=== PATIENT | female | born 1950 | race Caucasian/White ===

== ENCOUNTER → 2017-01-04 | Outpatient (CLI) | payer BC ==
[~2017-01-04] MED LIST: NO HOME MEDICATIONS
== END ==
LOC: MC.RAD 14:59
DX: Z12.31 Encounter for screening mammogram for malignant neoplasm of breast (principal)

== ENCOUNTER → 2018-12-22 | Outpatient (CLI) | payer MEDICARE, OTHER | LOC: MC.RAD 09:00 | DX: Z12.31 Encounter for screening mammogram for malignant neoplasm of breast (principal) ==

== ENCOUNTER 2021-03-25 13:19 | Inpatient (IN) | payer MEDICARE, OTHER ==
[~2021-03-25] VITALS: Ht 162.6 cm; Wt 63.6 kg
[2021-03-25 14:36] LABS: ALANINE AMINOTRANSFERASE 43 U/L (4-34); ALBUMIN 3.5 gm/dL (3.5-5.0); ALKALINE PHOSPHATASE 59 U/L (50-136); ANION GAP 8 mmol/L (7-16); AST,SGOT 132 U/L (15-37); BILIRUBIN,TOTAL 0.7 mg/dL (0.0-1.0); BLOOD UREA NITROGEN 11 mg/dL (7-17); C-REACTIVE PROTEIN 7.5 mg/dL (0.0-0.9); CALCIUM 8.4 mg/dL (8.4-10.2); CARBON DIOXIDE 25 mmol/L (22-30); CREATININE, serum 0.73 (0.52-1.25); GLUCOSE 108 mg/dL (74-106); POTASSIUM 3.7 mmol/L (3.4-5.0); TOTAL PROTEIN 6.9 gm/dL (6.4-8.2)
[2021-03-25 14:44] LABS: ALCOHOL(ethanol),MEDICAL < 10 mg/dL
[2021-03-25 14:45] LABS: SODIUM 118 mmol/L (137-145)
[2021-03-25 14:46] LABS: CHLORIDE 85 mmol/L (98-107)
[2021-03-25 14:56] LABS: TROPONIN-I < 0.012 ng/mL (0.000-0.035)
[2021-03-25 15:06] LABS: BASO % 0.3 % (0.0-2.0); HEMATOCRIT 37.9 % (37.0-47.0); HEMOGLOBIN 13.6 g/dl (12.5-16.0); LYMPH # 0.3 (1.2-3.4); LYMPH % 5.2 % (20.0-51.0); MEAN CELL VOLUME 98 fl (80.0-100.0); MEAN CORPUSCULAR HEMOGLOBIN 35 pg (27.0-31.0); MEAN CORPUSCULAR HGB CONC 36 g/dl (33.0-37.0); MEAN PLATELET VOLUME 10.5 fl (7.4-10.4); MONO # 0.4 (0.1-0.6); MONO % 6.8 % (1.7-9.3); PLATELET COUNT 123 K/mm3 (130-400); RED BLOOD COUNT 3.88 M/mm3 (4.10-5.30); REDCELL DISTRIBUTION WIDTH-CV 12.1 % (11.5-14.5)
[2021-03-25 15:51] LABS: COLLECTION METHOD CLEAN CATCH
[2021-03-25 16:06] LABS: MUCOUS Present /lpf; PH 8 (5-8); SQUAMOUS EPITHELIAL 0-2 /hpf; URINE APPEARANCE Cloudy; URINE BACTERIA Moderate /hpf; URINE BILIRUBIN Negative (NEGATIVE); URINE BLOOD 1+ (NEGATIVE); URINE COLOR Yellow; URINE GLUCOSE Negative (NEGATIVE); URINE KETONE Negative (NEGATIVE); URINE LEUKOCYTE ESTERASE 3+ (NEGATIVE); URINE NITRATE Negative (NEGATIVE); URINE PROTEIN(semi-quant) 1+ (NEGATIVE); URINE RBC 0-2 /hpf; URINE UROBILINOGEN Negative (NEGATIVE)
[2021-03-25 17:56] LABS: PROTHROMBIN TIME 11.4 SECONDS (9.7-12.8)
[2021-03-25 18:12] LABS: CALCIUM 7.6 mg/dL (8.4-10.2); CREATININE, serum 0.71 (0.52-1.25); POTASSIUM 3.3 mmol/L (3.4-5.0)
[2021-03-25 20:37] VITALS: BP 11/53; BP 111/53; PULSE 60; TEMP 97.7
[2021-03-25] MEDS ORDERED: LOTREL 10 MG-201 CAP PO (21:44)
[2021-03-25] MEDS ORDERED: MEVACOR 20M20 MG/TAB PO (21:46)
--- NOTE | 2021-03-25 23:41 | NUR ---
PT RECIEVED TO MEDICAL FLOOR VIA WHEELCHAIR BY ED STAFF TO ROOM 311 AT APPROXIMATELY 2015, PT A/OX4, VSS, 02 ROOM AIR, PT RATES PAIN AT 2/10 TO LEFT HIP, THIS NURSE CONDUCTED ASSESMENT AND PLACED SCD'S ON BLE, THIS NURSE ORIENTED PT TO FLOOR AND DISCUSSED POC. PT EXPRESSES NO ADDITIONAL NEEDS AT THIS TIME. CALL LIGHT WITHIN REACH.
[2021-03-26] VITALS (7 sets, daily range): BP systolic 117–142; BP diastolic 47–79; PULSE 61–83; TEMP 97–101.5
[2021-03-26 02:17] LABS: CALCIUM 8.5 mg/dL (8.4-10.2); CREATININE, serum 0.8 (0.52-1.25); POTASSIUM 3.4 mmol/L (3.4-5.0)
[2021-03-26 08:13] LABS: BASO % 0.5 % (0.0-2.0); GRAN % 89.7 % (42.2-75.2); HEMATOCRIT 39.8 % (37.0-47.0); HEMOGLOBIN 14.1 g/dl (12.5-16.0); LYMPH # 0.2 (1.2-3.4); MEAN CELL VOLUME 100 fl (80.0-100.0); MEAN CORPUSCULAR HEMOGLOBIN 35 pg (27.0-31.0); MEAN CORPUSCULAR HGB CONC 35 g/dl (33.0-37.0); MEAN PLATELET VOLUME 11.1 fl (7.4-10.4); MONO # 0.2 (0.1-0.6); MONO % 4.1 % (1.7-9.3); PLATELET COUNT 131 K/mm3 (130-400); RED BLOOD COUNT 3.99 M/mm3 (4.10-5.30); REDCELL DISTRIBUTION WIDTH-CV 12.4 % (11.5-14.5)
[2021-03-26 08:26] LABS: ALBUMIN 3.1 gm/dL (3.5-5.0); BILIRUBIN,TOTAL 0.5 mg/dL (0.0-1.0); CALCIUM 8.3 mg/dL (8.4-10.2); CREATININE, serum 0.69 (0.52-1.25); POTASSIUM 3.8 mmol/L (3.4-5.0); TOTAL PROTEIN 6.1 gm/dL (6.4-8.2)
--- NOTE | 2021-03-26 08:47 | NUR ---
Scheduled medication given. Shift assessment preformed. Patient answers all orientation questions correctly except for year. Patient scoring a 2 on the CIWA scale. No focal deficits noted. Patient denies any pain, discomfort, or futher needs at this time. Fluids running as ordered. at the bedside. VSS. CAll light in reach. Fall precautions in place.
--- NOTE | 2021-03-26 09:21 | NUR ---
Initial visit; Patient thanked Supervisor Inspecting for looking in on her and offering God's blessings.
--- NOTE | 2021-03-26 10:53 | NUR ---
TYLOR met with the patient and her , Bogdan (ph#[phone]), to discuss discharge plan. The patient lives in [place] with her . She reports independence with ADLs and has a walking stick. The patient's PCP is Dr. Lala Mak and she receives her medications from [facility]. She reports no difficulties obtaining her meds. The patient does not have a DPOA-HC, but she was interested in obtaining a form. TYLOR provided. The patient plans to return home with her upon discharge. PT/OT notified TYLOR that they would recommend home health for the patient and a FWW. TYLOR discussed this with the patient and Bogdan. The patient and Bogdan declined home health and state that are pretty active and are not interested in home health at this time. TYLOR discussed getting a walker ordered through a [employer], utilizing her insurance. The patient and Bogdan report that they will take care of getting a FWW own their own. The patient has been having excessive alcohol use. TYLOR addressed this with the patient. The patient reports that she starts drinking in the afternoon. TYLOR discussed outpatient/inpatient treatment and AA meetings. The patient reports that she is not interested in any alcohol treatment and was not interested in a list of resources. The patient and her had no other questions or concerns for TYLOR. *Discharge plan: home with *
--- NOTE | 2021-03-26 18:24 | NUR ---
Patient has had an uneventful day. Fluids DC'd. NA currently 126. Patient A&O. CIWA score of 2. PRN tylenol given for a fever of 101.5. Rechecked temp, which dropped to 99.0. Patient denies any pain, discomfort, or further needs at this time. Call light in reach. Fall precautions in place. VSS. at the bedside.
--- NOTE | 2021-03-26 20:15 | NUR ---
PT RESTING COMFORTABLY IN BED. EVENING MEDICATIONS GIVEN. ASSESSMENT COMPLETED. PT ALERT AND ORIENTED X4. CALL LIGHT WITHIN REACH. WILL CONTINUE TO MONITOR. PT DENIES ANY NEEDS AT THIS TIME.
[2021-03-27 03:14] VITALS: BP 132/53; PULSE 86; TEMP 101.2
--- NOTE | 2021-03-27 03:23 | NUR ---
PT VITALS OBTAINED, TEMP ELEVATED TO 101. TYLENOL GIVEN PER ORDERS. WILL CONTINUE TO MONITOR.
--- NOTE | 2021-03-27 06:17 | NUR ---
PT HAS A GOOD NIGHT, WAS ABLE TO GET SOME REST.
[2021-03-27 07:21] LABS: HEMOGLOBIN 12.6 g/dl (12.5-16.0); MEAN CELL VOLUME 101 fl (80.0-100.0); MEAN CORPUSCULAR HEMOGLOBIN 35 pg (27.0-31.0); MEAN CORPUSCULAR HGB CONC 34 g/dl (33.0-37.0); MEAN PLATELET VOLUME 11.5 fl (7.4-10.4); PLATELET COUNT 154 K/mm3 (130-400); RED BLOOD COUNT 3.63 M/mm3 (4.10-5.30); REDCELL DISTRIBUTION WIDTH-CV 12.6 % (11.5-14.5)
[2021-03-27 07:22] LABS: HEMATOCRIT 36.6 % (37.0-47.0)
[2021-03-27 07:36] LABS: ALBUMIN 2.9 gm/dL (3.5-5.0); BILIRUBIN,TOTAL 0.3 mg/dL (0.0-1.0); CALCIUM 8.5 mg/dL (8.4-10.2); CREATININE, serum 0.62 (0.52-1.25); MAGNESIUM 1.9 mg/dL (1.6-2.3); POTASSIUM 3.4 mmol/L (3.4-5.0); TOTAL PROTEIN 5.7 gm/dL (6.4-8.2)
[2021-03-27 08:08] LABS: BAND 11 % (0-10); LYMPHOCYTE 22 % (20.0-51.0); METAMYELOCYTE 1 % (0-0); NEUTROPHILS 62 % (42.0-75.2); PLATELET ESTIMATE NORMAL (NORMAL)
[2021-03-27 09:04] VITALS: BP 140/60; PULSE 63; TEMP 98.2
--- NOTE | 2021-03-27 11:07 | NUR ---
Scheduled medications ordered. Shift assessment completed. Patient is A&O. Currenlty not scoring on the CIWA scale. Patient denies any pain, discomfort, SOA, or further needs at this time. VSS. Call light in reach.
[2021-03-27 17:20] VITALS: BP 130/74; PULSE 70; TEMP 98.2
--- NOTE | 2021-03-27 18:44 | NUR ---
Patient had an uneventful day. VSS. A&O. Patient denies any pain, discomfort, or further needs at this time. Call light in reach.
[2021-03-27 19:10] VITALS: BP 146/64; PULSE 77; TEMP 98.4
[2021-03-28] VITALS: BP 168/71; PULSE 69; TEMP 98.7
[2021-03-28 04:00] VITALS: BP 147/67; PULSE 65; TEMP 98.8
--- NOTE | 2021-03-28 05:23 | NUR ---
PT HAD UNEVENTFUL NIGHT, PT REMAINS A/OX4, 02 ROOM AIR, PT DENIES PAIN,N,V,D. PT EXPRESSES NO ADDITIONAL NEEDS AT THIS TIME. CALL LIGHT WITHIN REACH.
[2021-03-28 07:37] VITALS: BP 142/77; PULSE 92; TEMP 98.3
[2021-03-28 07:53] LABS: HEMATOCRIT 37.7 % (37.0-47.0); HEMOGLOBIN 13.2 g/dl (12.5-16.0); MEAN CELL VOLUME 102 fl (80.0-100.0); MEAN CORPUSCULAR HEMOGLOBIN 36 pg (27.0-31.0); MEAN CORPUSCULAR HGB CONC 35 g/dl (33.0-37.0); MEAN PLATELET VOLUME 11.3 fl (7.4-10.4); PLATELET COUNT 221 K/mm3 (130-400); REDCELL DISTRIBUTION WIDTH-CV 12.8 % (11.5-14.5)
[2021-03-28 08:00] LABS: BILIRUBIN,TOTAL 0.4 mg/dL (0.0-1.0); CALCIUM 9.1 mg/dL (8.4-10.2); CREATININE, serum 0.65 (0.52-1.25); POTASSIUM 3.8 mmol/L (3.4-5.0); TOTAL PROTEIN 6.1 gm/dL (6.4-8.2)
--- NOTE | 2021-03-28 09:23 | NUR ---
The hospitalist notified TYLOR that he is ready to d/c the patient today and that the patient is agreeable to home health. TYLOR met with the patient and her , Bogdan, and followed up about home health. The patient and her are agreeable to home health now. TYLOR presented them with Medicare[employer]gov's list of home health agencies that serve [place]. The patient and her chose [facility]. TYLOR contacted and faxed a referral to Carissa at [facility]. Awaiting screen. TYLOR presented and read the IM form outloud to the patient and her . The patient verbalized understanding and gave TYLOR approval to sign the form on her behalf. TYLOR provided her with a copy.
[2021-03-28 09:45] LABS: BAND 23 % (0-10)
[2021-03-28 09:46] LABS: LYMPHOCYTE 23 % (20.0-51.0); NEUTROPHILS 40 % (42.0-75.2); PLATELET ESTIMATE NORMAL (NORMAL)
--- NOTE | 2021-03-28 10:22 | NUR ---
Carissa, at [facility], reports that they can accept the patient for services.
[2021-03-28 11:26] VITALS: BP 146/70; PULSE 68; TEMP 98.4
[2021-03-28] MEDS ORDERED: OMNICEF 300MG300 MG PO (11:32)
--- NOTE | 2021-03-28 12:47 | NUR ---
The patient discharged back home with her today, 03/28, with home health services for care home/PT/OT/ST from [facility]. SW notified and faxed ordes to Carissa at [facility]. No additional needs at this time.
--- NOTE | 2021-03-31 12:56 | NUR ---
Carissa, at [facility], left a voicemail. Carissa reports that the patient and her canceled services with them.
== END 2021-03-28 12:39 | disposition home or self-care (01) | DRG 871 ==
LOC: COL.ER 13:19 → MEDICAL 19:49
PROVIDERS: Emergency Medicine; Internal Medicine; Physician Assistant; ADMIT Internal Medicine
DX: A41.9 Sepsis, unspecified organism (principal); G93.41 Metabolic encephalopathy; E87.1 Hypo-osmolality and hyponatremia; N39.0 Urinary tract infection, site not specified; E87.8 Other disorders of electrolyte and fluid balance, not elsewhere classified; B96.4 Proteus (mirabilis) (morganii) as the cause of diseases classified elsewhere; Z86.73 Personal history of transient ischemic attack (TIA), and cerebral infarction without residual deficits; R94.5 Abnormal results of liver function studies; I10 Essential (primary) hypertension; M16.0 Bilateral primary osteoarthritis of hip; E83.51 Hypocalcemia; E87.6 Hypokalemia; F10.10 Alcohol abuse, uncomplicated; D69.6 Thrombocytopenia, unspecified; E78.5 Hyperlipidemia, unspecified; R32 Unspecified urinary incontinence; F17.210 Nicotine dependence, cigarettes, uncomplicated; Z85.42 Personal history of malignant neoplasm of other parts of uterus; Z20.822 Contact with and (suspected) exposure to COVID-19; M25.552 Pain in left hip; S70.262A Insect bite (nonvenomous), left hip, initial encounter
CPT/HCPCS: 99223-AI; 99232-AI; 99233-AI; 99239; J0696; J1650; J7030